=== PATIENT | male | born 1980 | race Caucasian/White ===

== ENCOUNTER 2020-06-21 17:31 | Outpatient (REF) | payer OTHER, SELFPAY | END 2020-06-21 17:32 | disposition home or self-care (01) | LOC: HO.LAB 17:31 | PROVIDERS: Visit Provider Internal Medicine | DX: Z20.828 Contact with and (suspected) exposure to other viral communicable diseases (principal) | CPT/HCPCS: 36415; 87635 ==

== ENCOUNTER 2020-06-25 15:40 | Outpatient (REF) | payer OTHER, SELFPAY ==
[2020-06-25 16:07] LABS: COVID-19 Test Negative (Negative)
== END 2020-06-25 15:41 | disposition home or self-care (01) ==
LOC: HO.LAB 15:40
PROVIDERS: Visit Provider Internal Medicine
DX: Z20.828 Contact with and (suspected) exposure to other viral communicable diseases (principal)
CPT/HCPCS: 87635